=== PATIENT | female | born 2000 | race Hispanic/Latino ===

== ENCOUNTER 2024-04-12 11:28 | Emergency (ER) | payer OTHER ==
[~2024-04-12] VITALS: Ht 160 cm; Wt 77.3 kg
[2024-04-12 11:30] VITALS: PULSE 62; RESP 18; TEMP 98.1
[2024-04-12] MEDS ORDERED: MIRTAZAPINE7.5 MG PO (11:48)
[2024-04-12] MEDS ORDERED: LURASIDONE HCL40 MG (11:48)
[2024-04-12] MEDS ORDERED: INDERAL10 MG PO (11:48)
[2024-04-12] MEDS ORDERED: GABAPENTIN300 MG/6 M (11:48)
[2024-04-12] MEDS ORDERED: BUSPIRONE HCL10 MG PO (11:48)
[2024-04-12] MEDS ORDERED: TYLENOL325 MG PO (12:41)
[2024-04-12 12:55] VITALS: BP 107/68; PULSE 66; RESP 18; O2SAT 98
== END 2024-04-12 12:50 | disposition home or self-care (01) ==
LOC: FSED 11:32
DX: S60.221A Contusion of right hand, initial encounter (principal); W22.09XA Striking against other stationary object, initial encounter; Y92.89 Other specified places as the place of occurrence of the external cause
CPT/HCPCS: 99284